=== PATIENT | female | born 1960 ===

== ENCOUNTER 2018-05-06 14:57 | Emergency (ER) | payer OTHER ==
[~2018-05-06] VITALS: Ht 162.6 cm; Wt 77.1 kg
[2018-05-06] MEDS ORDERED: ATENOLOL25 MG (15:03)
== END 2018-05-06 18:05 | disposition home or self-care (01) ==
LOC: ER 14:57
DX: S30.0XXA Contusion of lower back and pelvis, initial encounter (principal); S40.012A Contusion of left shoulder, initial encounter; S80.11XA Contusion of right lower leg, initial encounter; W18.39XA Other fall on same level, initial encounter; Y93.89 Activity, other specified; Y92.89 Other specified places as the place of occurrence of the external cause; Y99.8 Other external cause status